=== PATIENT | male | born 1960 | race Caucasian/White ===

== ENCOUNTER 2020-08-10 10:24 | Day surgery (SDC) | payer OTHER, SELFPAY ==
[~2020-08-10] VITALS: Ht 180.3 cm; Wt 83.9 kg
[~2020-08-10 10:24] MED LIST: CEFAZOLIN SOD 2 GM in D5W 50 ML IV ONE
[2020-08-10] MEDS ORDERED: SEVOFLURANE 15 MIN GAS INH ONE (14:51)
[2020-08-10] MEDS ORDERED: fentaNYL CITRATE/PF 100 MCG/2 ML AMP IVP ONE (14:51)
[2020-08-10] MEDS ORDERED: DEXAMETHASONE SOD PHOSPHATE 4 MG/ML VIAL IVP ONE (14:51)
[2020-08-10] MEDS ORDERED: PROPOFOL 200MG/ 20ML VIAL (DIPRIVAN) IV ONE (14:51)
[2020-08-10] MEDS ORDERED: GLYCOPYRROLATE 0.2 MG/ML VIAL IJ ONE (14:51)
[2020-08-10] MEDS ORDERED: NEOSTIGMINE METHYLSULFATE 1 MG/ML, 10 ML VIAL IVP ONE (14:51)
[2020-08-10] MEDS ORDERED: ROCURONIUM BROMIDE 10 MG/ML (ZEMURON) IV ONE (14:51)
[2020-08-10] MEDS ORDERED: METOCLOPRAMIDE HCL 10 MG/2 ML VIAL IVP ONE (14:51)
[2020-08-10] MEDS ORDERED: NS IRRIG SOLN 1000 ML IR ONE (14:51)
[2020-08-10] MEDS ORDERED: LR 1,000 ML IV.SOLN IV ONE ×2 (14:51)
[2020-08-10] MEDS ORDERED: BUPIVACAINE /PF 0.25% 30 ML VIAL INJ ONE (14:51)
[2020-08-10] MEDS ORDERED: CEFAZOLIN 1 GM IVPB PREMIX 50 ML IV ONE (14:51)
[2020-08-10] MEDS ORDERED: BUPIVACAINE LIPOSOME/PF 266 MG/20 ML VIAL INFIL ONE (14:51)
[2020-08-10] MEDS ORDERED: POLYMYXIN 500,000/BACIT.10,000 UNITS in NS IRR 1 L IR ONE (15:40)
[2020-08-10] MEDS ORDERED: ONDANSETRON HCL 4 MG/2 ML VIAL IVP PRN (16:45)
[2020-08-10] MEDS ORDERED: HYDROmorphone 1 MG/ML INJ. CARTRIDGE IVP PRN ×2 (16:45)
[2020-08-10] MEDS ORDERED: HYDROmorphone 2 MG/ML VIAL IVP PRN (16:45)
[2020-08-10] MEDS ORDERED: KETOROLAC TROMETHAMINE 30 MG VIAL IVP PRN (16:45)
[2020-08-10] MEDS ORDERED: NALOXONE HCL 0.4 MG/ML AMP (NARCAN) IVP PRN (16:45)
[2020-08-10] MEDS ORDERED: LR 1,000 ML IV SCH (16:45)
[2020-08-10 18:34] VITALS: BP_SYST 137
== END 2020-08-10 18:28 | disposition home or self-care (01) ==
LOC: SDS 10:24 → SMU 10:28 → EDSEX 12:30 → EDSTATUS 12:30 → SDS 18:28
PROVIDERS: ATTEND Surgery
DX: K40.90 Unilateral inguinal hernia, without obstruction or gangrene, not specified as recurrent (principal); R10.2 Pelvic and perineal pain; I10 Essential (primary) hypertension; R73.9 Hyperglycemia, unspecified; Z79.899 Other long term (current) drug therapy
CPT/HCPCS: 36415; 49505; 87426; 88302; C1781; C9290; J0690 ×2; J1100; J2704; J2710; J2765; J3010; J3490 ×2; J7060; J7120

== ENCOUNTER 2022-12-08 06:30 | Day surgery (SDC) | payer OTHER ==
[~2022-12-08] VITALS: Ht 180.3 cm; Wt 83.9 kg
[2022-12-08 08:09] VITALS: O2SAT 99
[2022-12-08] MEDS ORDERED: MIDAZOLAM HCL 2 MG/2 ML VIAL (VERSED) ONE (08:27)
[2022-12-08] MEDS ORDERED: HYDROmorphone 2 MG/ML VIAL ONE ×2 (08:27→11:16)
[2022-12-08] MEDS ORDERED: BUPIVACAINE LIPOSOME/PF 266 MG/20 ML VIAL INFIL ONE (09:41)
[2022-12-08] MEDS ORDERED: KETOROLAC TROMETHAMINE 30 MG VIAL IVP PRN (11:15)
[2022-12-08] MEDS ORDERED: METOCLOPRAMIDE HCL 10 MG/2 ML VIAL IVP PRN (11:15)
[2022-12-08] MEDS ORDERED: HYDROmorphone 1 MG/ML INJ. CARTRIDGE IVP PRN ×2 (11:15)
[2022-12-08] MEDS ORDERED: ONDANSETRON HCL 4 MG/2 ML VIAL IVP PRN ×2 (11:15→13:45)
[2022-12-08] MEDS ORDERED: LR 1,000 ML IV.SOLN IV ONE ×2 (11:16→13:54)
[2022-12-08] MEDS ORDERED: WATER FOR IRRIGATION,STERILE 1,000 ML IRRIG.SOLN IR ONE ×2 (11:16→13:54)
[2022-12-08] MEDS ORDERED: NS IRRIG SOLN 1000 ML IR ONE ×2 (11:16→13:54)
[2022-12-08] MEDS ORDERED: METOCLOPRAMIDE HCL 10 MG/2 ML VIAL ONE (11:16)
[2022-12-08] MEDS ORDERED: CEFAZOLIN 2 GM IVPB PREMIX 50 ML IV ONE (11:16)
[2022-12-08] MEDS ORDERED: ROCURONIUM BROMIDE 10 MG/ML (ZEMURON) ONE (11:16)
[2022-12-08] MEDS ORDERED: SEVOFLURANE 15 MIN GAS INH ONE (11:16)
[2022-12-08] MEDS ORDERED: BUPIVACAINE /PF 0.25% 30 ML VIAL INJ ONE (11:16)
[2022-12-08] MEDS ORDERED: GLYCOPYRROLATE 0.2 MG/ML VIAL ONE (11:16)
[2022-12-08] MEDS ORDERED: PROPOFOL 200MG/ 20ML VIAL (DIPRIVAN) IV ONE ×2 (11:16→13:54)
[2022-12-08] MEDS ORDERED: ONDANSETRON HCL 4 MG/2 ML VIAL ONE (11:16)
[2022-12-08] MEDS ORDERED: MIDAZOLAM HCL 5 MG/5 ML VIAL ONE (12:41)
[2022-12-08] MEDS ORDERED: fentaNYL CITRATE/PF 100 MCG/2 ML AMP ONE (12:42)
[2022-12-08] MEDS ORDERED: MIDAZOLAM HCL 5 MG/ML VIAL (VERSED) IV ONE (13:54)
[2022-12-08 15:30] VITALS: PULSE 105; RESP 16; TEMP 97.3
[2022-12-08 18:01] VITALS: BP_SYST 125
== END 2022-12-08 16:20 | disposition home or self-care (01) ==
LOC: SMU 06:30 → SDS 06:30
PROVIDERS: ATTEND Surgery
DX: K40.30 Unilateral inguinal hernia, with obstruction, without gangrene, not specified as recurrent (principal); I10 Essential (primary) hypertension; E78.5 Hyperlipidemia, unspecified; K21.9 Gastro-esophageal reflux disease without esophagitis; Z79.899 Other long term (current) drug therapy
CPT/HCPCS: 87081; 49505; 86886; 86900; 86901; 36415; 88302; C1781; C9290; J3490 ×2; J0690; J2765; J2250 ×2; J3465; J2405; J2704; J3010; J1170; J7120